=== PATIENT | male | born 1940 | race Caucasian/White ===

== ENCOUNTER 2016-06-06 07:02 | Emergency (ER) | payer MEDICARE, BC ==
--- NOTE | 2016-06-06 07:24 | UC ---
Respiratory Complaint HPI - HPI Summary HPI Summary: Cough productive of green sputum, nasal congestion x 1 week, getting worse. Pt states long hx of bronchitis every year until last year, when he started using a coal stove instead of a wood burning stove. No fever. Has had the pneumonia shots and a flu shot this year. Has seen a anesthesiology tech and last time he had this he did well with prednisone. Pt is Type II DM. Denies chest pain, SOB. - History of Current Complaint Stated Complaint: COUGH Time Seen by Provider: 06/06/16 07:18 Hx Obtained From: Patient Onset/Duration: Gradual Onset, Lasting Weeks - 1, Still Present Timing: Constant Severity Initially: Moderate Severity Currently: Moderate Pain Intensity: 0 Pain Scale Used: 0-10 Numeric Character: Sputum Description: - green Aggravating Factors: Nothing Alleviating Factors: Nothing Associated Signs And Symptoms: Positive: URI, Nasal Congestion, Sinus Discomfort. Negative: Fever, Chills, Pleuritic Chest Pain, Wheezing Related History: Similar Episode/Dx as: - bronchitis - Risk Factors Pulmonary Embolism Risk Factors: Negative Pseudomonas Risk Factors: Negative Tuberculosis Risk Factors: Negative - Allergies/Home Medications Allergies/Adverse Reactions: Allergies Allergy/AdvReac Type Severity Reaction Status Date / Time Clindamycin Allergy Anxiety Verified 06/06/16 07:18 Erythromycin Allergy Nausea And Verified 06/06/16 07:18 Vomiting Ezetimibe [From Vytorin] Allergy See Comment Verified 06/06/16 07:18 Guaifenesin [From Guaifenex] Allergy Anxiety Verified 06/06/16 07:18 Phenylephrine Allergy Anxiety Verified 06/06/16 07:18 [From Guaifenex] Phenylpropanolamine Allergy Anxiety Verified 06/06/16 07:18 [From Guaifenex] Simvastatin [From Vytorin] Allergy See Comment Verified 06/06/16 07:18 Sulfa Antibiotics Allergy Swelling Verified 06/06/16 07:18 Of Face,Lips,& Throat Tadalafil [From Cialis] Allergy Fatigue Verified 06/06/16 07:18 Tamsulosin [From Flomax] Allergy Fatigue Verified 06/06/16 07:18 Home Medications: Home Medications Ascorbic Acid TAB* [Vitamin C TAB*] 2 tab PO DAILY 06/06/16 [History Confirmed 06/06/16] Aspirin [Aspirin 81 MG TAB] 1 tab PO DAILY 06/06/16 [History Confirmed 06/06/16] Atorvastatin* [Lipitor 40 MG*] 1 tab PO WEEKLY 06/06/16 [History Confirmed 06/06] Brewers Yeast 1 pow PO TID 06/06/16 [History Confirmed 06/06/16] Cholecalciferol [Vitamin D3] 1 tab PO DAILY 06/06/16 [History Confirmed 06/06/16 ] Cyanocobalamin [Vitamin B 12] 1 tab PO DAILY 06/06/16 [History Confirmed ] Edex 10 mg PRN 06/06/16 [History] Folic Acid 1 tab PO DAILY 06/06/16 [History Confirmed 06/06/16] Garlic 1 cap PO DAILY 06/06/16 [History Confirmed 06/06/16] Imipramine (NF) 2 tab PO BEDTIME 06/06/16 [History Confirmed 06/06/16] Losartan Potassium [Cozaar] 50 mg PO DAILY 06/06/16 [History Confirmed 06/06/16] Metformin HCl [Fortamet] 500 mg PO TID 06/06/16 [History Confirmed 06/06/16] Multiple Vitamin [Multi Vitamin] 1 tab PO DAILY 06/06/16 [History Confirmed ] [place]-3 Fatty Acids [Fish Oil] 2 cap PO DAILY 06/06/16 [History Confirmed ] Psyllium [Metamucil] 1 cap PO DAILY 06/06/16 [History Confirmed 06/06/16] Pyridoxine HCl [Vitamin B6] 1 tab PO DAILY 06/06/16 [History Confirmed 06/06/16] ValACYclovir (*) [Valtrex 500 mg (*)] 500 mg PO DAILY PRN 06/06/16 [History Confirmed 06/06/16] PMH/Surg Hx/FS Hx/Imm Hx Endocrine History Of: Reports: Diabetes, Dyslipidemia Cardiovascular History Of: Reports: Hypertension Respiratory History Of: Reports: Bronchitis Psychological History Of: Reports: Anxiety - Surgical History Surgical History: Yes Surgery Procedure, Year, and Place: TMJ, hernia, vasectomy, eye surgery - Family History Known Family History: Positive: Diabetes - Social History Occupation: Retired Lives: With Family Alcohol Use: None Substance Use Type: None Smoking Status (MU): Never Smoked Tobacco Review of Systems Constitutional: Negative ENT: Nasal Discharge Respiratory: Cough Cardiovascular: Negative Neurological: Negative Psychological: Negative All Other Systems Reviewed And Are Negative: Yes Physical Exam Triage Information Reviewed: Yes Appearance: No Pain Distress, Well-Nourished, Ill-Appearing Vital Signs: elevated BP noted Vital Signs Reviewed: Yes Eyes: Positive: Conjunctiva Clear ENT: Positive: Pharyngeal erythema, TMs normal. Negative: Muffled/hoarse voice Neck: Positive: Supple, Nontender, No Lymphadenopathy Respiratory: Positive: Lungs clear, Normal breath sounds, No respiratory distress Cardiovascular: Positive: RRR, No Murmur, Pulses Normal, Brisk Capillary Refill Musculoskeletal: Positive: Strength Intact, ROM Intact Neurological: Positive: Alert, Muscle Tone Normal Psychological Exam: Normal Skin Exam: Normal Respiratory Course/Dx - Course Course Of Treatment: Pt advised that he needs definite follow up with Dr. Jackman regarding his BP. - Differential Dx/Diagnosis Differential Diagnosis/HQI/PQRI: Bronchitis, Lower Resp Infection, Sinusitis Provider Diagnoses: acute bronchitis. BP in poor control Discharge - Discharge Plan Condition: Stable Disposition: HOME Prescriptions: predniSONE TAB* [Deltasone TAB*] 40 mg PO DAILY #10 tab Patient Education Materials: Acute Bronchitis (ED) Referrals: Camden Jackman MD [Primary Care Provider] - 2 Days (Have definite follow up regarding your blood pressure which is elevated today. )
[2016-06-06 07:29] VITALS: BP 141/83
== END 2016-06-06 08:00 | disposition home or self-care (01) ==
LOC: UCCORT 07:02
DX: J20.9 Acute bronchitis, unspecified (principal); I10 Essential (primary) hypertension; E11.9 Type 2 diabetes mellitus without complications; E78.5 Hyperlipidemia, unspecified; F41.9 Anxiety disorder, unspecified; Z88.8 Allergy status to other drugs, medicaments and biological substances; Z88.2 Allergy status to sulfonamides; Z88.1 Allergy status to other antibiotic agents
CPT/HCPCS: 99202; G0463

== ENCOUNTER 2016-11-11 17:29 | Emergency (ER) | payer MEDICARE, BC ==
[2016-11-11] MEDS ORDERED: Lidocaine 1% MPF* 2 ML VIAL INJ ONE ×2 (17:36→17:37)
[2016-11-11] MEDS ORDERED: Tetan/Diph/Pertus SYR(Tdap)* 0.5 ML SYR(BOOSTRIX) use SYR IM ONE (17:36)
[2016-11-11 17:38] VITALS: BP 149/75
--- NOTE | 2016-11-11 18:22 | UC ---
Laceration HPI - HPI Summary HPI Summary: Pt presents with c/o laceration to right third fingertip happened~ 1 hours ago - History Of Current Complaint Chief Complaint: UCLaceration Stated Complaint: RIGHT MIDDLE FINGER LAC Time Seen by Provider: 11/11/16 17:33 Hx Obtained From: Patient Laceration Location: Finger - right third Mechanism Of Injury: Blunt Trauma Onset/Duration: Sudden Onset Severity: Moderate Aggravating Factors: Movement Related History: Dominant Hand Right - Allergies/Home Medications Allergies/Adverse Reactions: Allergies Allergy/AdvReac Type Severity Reaction Status Date / Time Clindamycin Allergy Anxiety Verified 11/11/16 17:39 Erythromycin Allergy Nausea And Verified 11/11/16 17:39 Vomiting Ezetimibe [From Vytorin] Allergy See Comment Verified 11/11/16 17:39 Guaifenesin [From Guaifenex] Allergy Anxiety Verified 11/11/16 17:39 Phenylephrine Allergy Anxiety Verified 11/11/16 17:39 [From Guaifenex] Phenylpropanolamine Allergy Anxiety Verified 11/11/16 17:39 [From Guaifenex] Simvastatin [From Vytorin] Allergy See Comment Verified 11/11/16 17:39 Sulfa Antibiotics Allergy Swelling Verified 11/11/16 17:39 Of Face,Lips,& Throat Tadalafil [From Cialis] Allergy Fatigue Verified 11/11/16 17:39 Tamsulosin [From Flomax] Allergy Fatigue Verified 11/11/16 17:39 Home Medications: Home Medications Ascorbic Acid TAB* [Vitamin C TAB*] 500 mg PO DAILY 11/11/16 [History Confirmed 11/11/16] Aspirin EC Low Dose* [Ecotrin EC Low Dose 81 MG*] 81 mg PO DAILY 11/11/16 [ History Confirmed 11/11/16] Atorvastatin* [Lipitor 40 MG*] 40 mg PO DAILY 11/11/16 [History Confirmed ] Brewers Yeast 500 mg PO DAILY 11/11/16 [History Confirmed 11/11/16] Folic Acid 400 mcg PO DAILY 11/11/16 [History Confirmed 11/11/16] Garlic 1,000 mg PO DAILY 11/11/16 [History Confirmed 11/11/16] Imipramine (NF) 25 mg PO BEDTIME 11/11/16 [History Confirmed 11/11/16] Losartan TAB* [Cozaar TAB*] 50 mg PO DAILY 11/11/16 [History Confirmed 11/11/16] Multiple Vitamins W/ Minerals [Multivitamin Adults] 1 tab PO DAILY 11/11/16 [ History Confirmed 11/11/16] [place]-3 Fatty Acids [Fish Oil] 1,000 mg PO DAILY 11/11/16 [History Confirmed ] ValACYclovir (*) [Valtrex 500 mg (*)] 500 mg PO DAILY 11/11/16 [History Confirmed 11/11/16] metFORMIN* [Glucophage 500 MG TAB *] 500 mg PO DAILY 11/11/16 [History Confirmed 11/11/16] PMH/Surg Hx/FS Hx/Imm Hx Previously Healthy: No Endocrine History: Diabetes - Surgical History Surgical History: Yes Surgery Procedure, Year, and Place: TMJ, hernia, vasectomy, eye surgery - Family History Known Family History: Positive: Diabetes - Social History Occupation: Retired Lives: With Family Alcohol Use: None Substance Use Type: None Smoking Status (MU): Never Smoked Tobacco - Immunization History Most Recent Influenza Vaccination: 12/2015 Most Recent Tetanus Shot: 10 years ago Most Recent Pneumonia Vaccination: 2014 Review of Systems Constitutional: Negative Skin: Other - laceration Eyes: Negative ENT: Negative Respiratory: Negative Cardiovascular: Negative Gastrointestinal: Negative Genitourinary: Negative Motor: Negative Neurovascular: Negative Musculoskeletal: Myalgia - right third finger distal fingertip Neurological: Negative Psychological: Negative All Other Systems Reviewed And Are Negative: Yes Physical Exam Triage Information Reviewed: Yes Appearance: Well-Appearing Vital Signs: Initial Vital Signs Temp 98.1 F 11/11/16 17:34 Pulse 94 11/11/16 17:34 Resp 18 11/11/16 17:34 BP 149/75 11/11/16 17:34 Pulse Ox 98 11/11/16 17:34 Eye Exam: Normal Musculoskeletal Exam: Normal Musculoskeletal: Positive: Strength Intact, ROM Intact Neurological Exam: Normal Psychological Exam: Normal Skin Exam: Other - 2 cm laceration to right third distal finger tip Laceration Repair - Laceration Repair 2 Description: Linear Laceration Size After Repair: Length (cm) - 2, Width (mm) - 4, Depth (mm) - 4 Modified For Repair: No Type Injection: Local Anesthesia Used: 1.0% Lido - 4 ml injected to right 3rd finger, Cleansing Completed Via Routine Prep: Yes Closure Material: Sutures - 4 sutures of 4-0 placed in right 3rd finger distal fingertip Closure Method: Single Layer Suture Of: Skin Laceration Course/Dx - Differential Dx - Laceration/Wound Differental Diagnoses: Laceration Provider Diagnoses: laceration to right 3rd finger distal finger tip. repaired with 4 sutures of 4-0. Tetanus not UTD Discharge - Discharge Plan Condition: Stable Disposition: HOME Prescriptions: Cephalexin CAP* [Keflex 500 CAP*] 500 mg PO Q12H #10 cap Patient Education Materials: Care For Your Stitches (ED), Laceration (ED) Referrals: Camden Jackman MD [Primary Care Provider] - If Needed Additional Instructions: Please return to clinic in 7-10 for suture removal. If unable to return to clinic please follow up with your PCP.
== END 2016-11-11 18:28 | disposition home or self-care (01) ==
LOC: UCCORT 17:29
DX: S61.212A Laceration without foreign body of right middle finger without damage to nail, initial encounter (principal); W45.8XXA Other foreign body or object entering through skin, initial encounter; E11.9 Type 2 diabetes mellitus without complications; Z88.3 Allergy status to other anti-infective agents; Z88.2 Allergy status to sulfonamides; Z79.82 Long term (current) use of aspirin; Z79.84 Long term (current) use of oral hypoglycemic drugs
CPT/HCPCS: 12001; 90715; 96372; 99212; G0463